=== PATIENT | female | born 1940 | race Caucasian/White ===

== ENCOUNTER 2020-02-12 15:39 | Inpatient (IN) | payer OTHER, SELFPAY ==
[~2020-02-12] VITALS: Ht 149.9 cm; Wt 57.2 kg
[~2020-02-12 15:39] MED LIST: ASPI-862 PO; HYDR-1189 PO; LIP40 PO; LOSA50TA3 PO
[2020-02-12 15:53] VITALS: BP_SYST 107
--- NOTE | 2020-02-12 15:58 | NUR ---
Patient to ER bed 3 to gown for evaluation. Side rails up. Report given to DANGELO Amado.
--- NOTE | 2020-02-12 16:00 | NUR ---
PT BIB DAUGHTER FOR ABD PAIN, N/V, DIARRHEA, DYSURIA AND GENERALIZED WEAKNESS X 5 DAYS. PT REPORTS HAVING SOME CONFUSION AND CHANGE IN TASTE. PRESENTS AAOX4, V/S STABLE.
--- NOTE | 2020-02-12 16:05 | NUR ---
ER DR. CANO AT THE BEDSIDE EVALUATING PT
--- NOTE | 2020-02-12 16:10 | NUR ---
# 20 gauge angiocath placed to RFA. Use of asceptic technique. Opsite placed over site. Blood return noted. Blood for lab drawn from site. Flushed with 10 cc of normal saline. No evidence of infiltration noted. Patient tolerated well.
[2020-02-12] MEDS ORDERED: NACL 0.9% 1,500 ML IV ONE (16:45)
[2020-02-12 17:12] LABS: BASOPHILS # (AUTO) 0.1 K/uL (0.0-0.2); BASOPHILS % (AUTO) 0.5 % (0.0-2.0); EOSINOPHILS # (AUTO) 0.7 K/uL (0.0-0.4); EOSINOPHILS % (AUTO) 6.4 % (0.0-4.0); HEMATOCRIT 34.5 % (36-48); HEMOGLOBIN 11.6 g/dL (12.0-16.0); LYMPHOCYTES # (AUTO) 0.1 K/uL (1.0-5.5); LYMPHOCYTES % (AUTO) 1.2 % (20.5-51.5); MEAN CORPUSCULAR HEMOGLOBIN 30 pg (27-31); MEAN CORPUSCULAR HGB CONC 34 % (32-36); MEAN CORPUSCULAR VOLUME 88 fL (79.0-98.0); MONOCYTES # (AUTO) 0.2 K/uL (0.0-1.0); MONOCYTES % (AUTO) 1.8 % (1.7-9.3); NEUTROPHILS # (AUTO) 10.2 K/uL (1.8-7.7); NEUTROPHILS % (AUTO) 90.1 % (40.0-70.0); PLATELET COUNT (AUTO) 61 K/uL (130-430); RED BLOOD CELL COUNT(AUTO) 3.92 MIL/uL (4.2-6.2); RED CELL DISTRIBUTION WIDTH 14.1 % (9.0-15.0); WHITE BLOOD COUNT (AUTO) 11.4 K/uL (4.8-10.8)
[2020-02-12 17:14] LABS: ANION GAP 15 (5-15); CALCIUM 9.2 mg/dL (8.4-11.0); CHLORIDE 95 mmol/L (98-107); CREATININE 2.14 mg/dL (0.55-1.30); GLUCOSE 148 mg/dL (70-99); POTASSIUM 3.9 mmol/L (3.5-5.1); SODIUM SERUM 128 mmol/L (136-145); UREA NITROGEN, BLOOD 88 mg/dL (8-21)
[2020-02-12 17:21] LABS: ALANINE AMINOTRANSFERASE 57 U/L (12-78); ALBUMIN 2.6 g/dL (3.4-4.8); ASPARTATE AMINOTRANSFERASE 42 U/L (10-37); TOTAL BILIRUBIN 1.1 mg/dL (0.0-1.0)
--- NOTE | 2020-02-12 18:00 | NUR ---
PT ABLE TO VOID AT [facility] COMMODE, SPECIMEN SENT TO LAB
[2020-02-12] MEDS ORDERED: D5/0.45 NS 1,000 ML IV SCH (18:45)
--- NOTE | 2020-02-12 19:00 | NUR ---
SW DAUGHTER IGLESIA TO INFORM ABOUT ADMISSION. SHE IS TO BRING PT'S MEDICATION INFORMATION FATOUMATA.
[2020-02-12] MEDS ORDERED: LIP40 PO (19:30)
[2020-02-12] MEDS ORDERED: NITR-85 PO (19:30)
[2020-02-12] MEDS ORDERED: LOSA50TA3 PO (19:30)
--- NOTE | 2020-02-12 19:30 | NUR ---
Medication reconciliation completed with information provided by IGLESIA (DAUGHTER). Any prior medication reconciliation on file was reviewed and corrected.
[2020-02-12 20:06] LABS: BILIRUBIN,URINE NEGATIVE (NEGATIVE); BLOOD, URINE 2+ (NEGATIVE); CLARITY/URINE TURBID (CLEAR); COLOR,URINE YELLOW (YELLOW); GLUCOSE,URINE NEGATIVE (NEGATIVE); KETONES,URINE NEGATIVE (NEGATIVE); LEUKOCYTE ESTERASE ,URINE 2+ (NEGATIVE); NITRITE, URINE NEGATIVE (NEGATIVE); PH,URINE 6.5 (5.0-8.0); PROTEIN URINE 2+ (NEGATIVE); UROBILINOGEN,URINE 0.2 (0.2-1.0)
[2020-02-12 20:30] LABS: BACTERIA,URINE MANY /HPF (None Seen); WBC,URINE >100 /HPF (0-3)
[2020-02-12 20:31] LABS: COARSE GRANULAR CASTS,URINE 0-10 /LPF (None Seen)
--- NOTE | 2020-02-12 20:55 | NUR ---
PT REPORT AND PT RECEIVED FROM DANGELO BOSE ALERT FOLLOWS COMMANDS C/O N/V/D
--- NOTE | 2020-02-12 23:02 | NUR ---
PT ASSISTED TO BR AMBULATORY
[2020-02-12] MEDS ORDERED: cefTRIAXone 1 GM IVPB PREMIX 50 ML IV SCH (23:45)
[2020-02-12] MEDS ORDERED: HYDROcodone/ACETAMIN 5-325 MG TAB (NORCO/ VICODIN) PO PRN (23:45)
[2020-02-12] MEDS ORDERED: HYDROcodone/ACETAMIN 10-325 MG TAB PO PRN (23:45)
[2020-02-12] MEDS ORDERED: NALOXONE HCL 0.4 MG/ML AMP (NARCAN) IVP PRN ×2 (23:45)
[2020-02-12] MEDS ORDERED: ONDANSETRON HCL 4 MG/2 ML VIAL IVP PRN (23:45)
--- NOTE | 2020-02-13 00:44 | NUR ---
PT SLEEPING NO DISTRESS
--- NOTE | 2020-02-13 04:30 | NUR ---
PT ASSISTED TO BR BY DANGELO NOBLE AND ALEJANDRO SUMNER
--- NOTE | 2020-02-13 06:00 | NUR ---
PT ALERT NO DISTRESS
[2020-02-13] MEDS: D5NS 1,000 ML IV SCH ×2 (07:15→21:27)
[2020-02-13 07:59] LABS: BASOPHILS % (AUTO) 0.2 % (0.0-2.0); EOSINOPHILS # (AUTO) 0.4 K/uL (0.0-0.4); EOSINOPHILS % (AUTO) 2.4 % (0.0-4.0); HEMATOCRIT 30.3 % (36-48); HEMOGLOBIN 10.2 g/dL (12.0-16.0); LYMPHOCYTES # (AUTO) 0.3 K/uL (1.0-5.5); LYMPHOCYTES % (AUTO) 2.1 % (20.5-51.5); MEAN CORPUSCULAR HEMOGLOBIN 29 pg (27-31); MEAN CORPUSCULAR HGB CONC 34 % (32-36); MEAN CORPUSCULAR VOLUME 87 fL (79.0-98.0); MONOCYTES # (AUTO) 1.3 K/uL (0.0-1.0); MONOCYTES % (AUTO) 8.1 % (1.7-9.3); NEUTROPHILS # (AUTO) 14.4 K/uL (1.8-7.7); NEUTROPHILS % (AUTO) 87.2 % (40.0-70.0); PLATELET COUNT (AUTO) 52 K/uL (130-430); RED BLOOD CELL COUNT(AUTO) 3.47 MIL/uL (4.2-6.2); RED CELL DISTRIBUTION WIDTH 14.1 % (9.0-15.0); WHITE BLOOD COUNT (AUTO) 16.5 K/uL (4.8-10.8)
--- NOTE | 2020-02-13 08:00 | NUR ---
Pt AOx4 no distress noted at this time
[2020-02-13 08:34] LABS: ALANINE AMINOTRANSFERASE 53 U/L (12-78); ALBUMIN 2.1 g/dL (3.4-4.8); ANION GAP 13 (5-15); ASPARTATE AMINOTRANSFERASE 38 U/L (10-37); CALCIUM 8.4 mg/dL (8.4-11.0); CHLORIDE 101 mmol/L (98-107); CREATININE 1.47 mg/dL (0.55-1.30); GLUCOSE 132 mg/dL (70-99); LIPASE 240 U/L (73-393); POTASSIUM 3.2 mmol/L (3.5-5.1); SODIUM SERUM 132 mmol/L (136-145); UREA NITROGEN, BLOOD 69 mg/dL (8-21)
[2020-02-13] MEDS ORDERED: LOSARTAN POTASSIUM 50 MG TABLET (COZAAR) PO SCH ×2 (09:00)
[2020-02-13] MEDS ORDERED: NITROFURANTOIN MONOHYD/M-CRYST 100 MG CAPSULE PO SCH (09:00)
[2020-02-13] MEDS: ATORVASTATIN 20 MG TABLET PO SCH ×2 (09:00→21:19)
[2020-02-13] MEDS: ASPIRIN 325 MG TABLET (ECOTRIN) PO SCH (09:00)
[2020-02-13] MEDS ORDERED: LEVOFLOXACIN 500 MG/D5W 100 ML IV SCH (10:00)
--- NOTE | 2020-02-13 10:00 | NUR ---
Pt resting comfortably in [facility] at this time.
[2020-02-13] MEDS ORDERED: LEVOFLOXACIN 500 MG/D5W 100 ML IV ONE (10:35)
[2020-02-13] MEDS ORDERED: ASPIRIN 325 MG TABLET (ECOTRIN) PO ONE (10:36)
--- NOTE | 2020-02-13 12:00 | NUR ---
Pt able to eat lunch, ambulate to restroom, VSS
[2020-02-13] MEDS: PIPERACILLIN/TAZO 3.375/DEX-IS 50 ML IV SCH ×2 (13:00→20:25)
[2020-02-13] MEDS ORDERED: PIPERACILLIN/TAZOBACTAM 3.375 GM/VIAL (ZOSYN) IV ONE (13:40)
--- NOTE | 2020-02-13 14:00 | NUR ---
Pt AO4, resting comfortably, VSS
--- NOTE | 2020-02-13 15:15 | NUR ---
Patient assisted ambulating to restroom, PT A&Ox4.
--- NOTE | 2020-02-13 19:10 | NUR ---
REPORT TO JUNE RN
--- NOTE | 2020-02-13 20:31 | NUR ---
Assist patient to restroom by EMT.
[2020-02-13] MEDS ORDERED: ACETAMINOPHEN 325 MG TABLET ONE (20:53)
[2020-02-13] MEDS: ACETAMINOPHEN 325 MG TABLET PO PRN (20:56)
--- NOTE | 2020-02-13 20:57 | NUR ---
Given Tylenol 650 mg PO , patient have headache, pain rate 4/10.
[2020-02-13] MEDS ORDERED: ATORVASTATIN 20 MG TABLET ONE (21:15)
--- NOTE | 2020-02-13 21:45 | NUR ---
Patient will be admitted to care of Dr. Glasgow. Admitted to M/S unit. Will go to room 122B. Belongings list completed. Complete and up to date summary report printed. SBAR report to be given at bedside with opportunity for questions.
--- NOTE | 2020-02-13 22:19 | NUR ---
ADMISSION: The patient, SHALONDA MONTOYA, 79 y/o, F admitted by SHERYL HERNANDEZ MD, was given written information regarding hospital policies, unit procedures and contact persons. Valuables were checked and pt oriented to her room and surrounding.
[2020-02-13 22:30] VITALS: BP_SYST 115
--- NOTE | 2020-02-13 22:30 | NUR ---
Pt ambulated to the bathroom with assist and back to bed after she voided clear yellowish urine in the toilet. Call light given to pt and bed alarm is on.
[2020-02-13 23:16] VITALS: BP_SYST 115
--- NOTE | 2020-02-14 | NUR ---
IVF is infusing well in RFA. Fall, droplet isolation an safety precautions are in place.
--- NOTE | 2020-02-14 01:05 | NUR ---
Pt is resting quietly in bed. IVF is infusing well in RFA. Call light is with pt and bed alarm is on.
[2020-02-14] MEDS: PIPERACILLIN/TAZO 3.375/DEX-IS 50 ML IV SCH ×3 (01:11→11:33)
--- NOTE | 2020-02-14 03:00 | NUR ---
IVF is infusing well in RFA. No respiratory distress noted. Call light is with pt and bed alarm is on.
[2020-02-14] MEDS: D5NS 1,000 ML IV SCH ×2 (03:15→14:26)
--- NOTE | 2020-02-14 05:00 | NUR ---
Pt had moderate amount of semi-watery brownish stool in BSC. Pt was assisted with hygiene. IVF is infusing well in RFA. Call light is with pt and bed alarm is on.
--- NOTE | 2020-02-14 06:10 | NUR ---
Pt had small amount of semi-watery brownish stool in bedpan. Pt was assisted with hygiene. IVF is infusing well in RFA. Call light is with pt and bed alarm is on.
[2020-02-14 07:38] LABS: BASOPHILS % (AUTO) 0.1 % (0.0-2.0); EOSINOPHILS % (AUTO) 0.1 % (0.0-4.0); HEMATOCRIT 31.9 % (36-48); HEMOGLOBIN 10.6 g/dL (12.0-16.0); LYMPHOCYTES # (AUTO) 0.5 K/uL (1.0-5.5); LYMPHOCYTES % (AUTO) 2.4 % (20.5-51.5); MEAN CORPUSCULAR HEMOGLOBIN 29 pg (27-31); MEAN CORPUSCULAR HGB CONC 33 % (32-36); MEAN CORPUSCULAR VOLUME 88 fL (79.0-98.0); MONOCYTES # (AUTO) 1.9 K/uL (0.0-1.0); MONOCYTES % (AUTO) 8.4 % (1.7-9.3); PLATELET COUNT (AUTO) 64 K/uL (130-430); RED BLOOD CELL COUNT(AUTO) 3.62 MIL/uL (4.2-6.2); RED CELL DISTRIBUTION WIDTH 14.3 % (9.0-15.0); WHITE BLOOD COUNT (AUTO) 22.5 K/uL (4.8-10.8)
[2020-02-14 07:57] LABS: ALANINE AMINOTRANSFERASE 51 U/L (12-78); ALBUMIN 1.8 g/dL (3.4-4.8); ANION GAP 12 (5-15); ASPARTATE AMINOTRANSFERASE 35 U/L (10-37); CALCIUM 8.3 mg/dL (8.4-11.0); CHLORIDE 103 mmol/L (98-107); GLUCOSE 160 mg/dL (70-99); SODIUM SERUM 136 mmol/L (136-145); UREA NITROGEN, BLOOD 38 mg/dL (8-21)
[2020-02-14 08:00] VITALS: BP_SYST 117
--- NOTE | 2020-02-14 08:40 | NUR ---
CONSULTATION CALLED REASON FOR CONSULTATION:ABDOMINAL PAIN WAS CONSULT CALLED?YY PERSON WHO WAS NOTIFIED:JACKSON CONSULTING PHYSICIAN:CALLIE VILLEDA (SIMONE MIXON HUMIDIFIER MAINTENANCE WORKER) MACHINE MAINTENANCE MECHANIC SPECIALTY:GI MACHINE MAINTENANCE MECHANIC PHONE NUMBER:[phone] REQUESTING PHYSICIAN:SOY JOHNSON
[2020-02-14] MEDS: ATORVASTATIN 20 MG TABLET PO SCH ×2 (09:56→20:19)
[2020-02-14] MEDS: FAMOTIDINE PF 20 MG/2 ML VIAL IVP SCH ×2 (09:56→20:17)
[2020-02-14] MEDS: ASPIRIN 325 MG TABLET (ECOTRIN) PO SCH (09:56)
[2020-02-14 10:00] LABS: INR 1.2 (0.8-1.2); PROTHROMBIN TIME 12.2 SECS (9.5-12.5)
[2020-02-14 10:29] LABS: TOTAL IRON BIND. CAPACITY 151 ug/dL (250-450)
[2020-02-14 10:44] LABS: ACETAMINOPHEN < 1 ug/mL (1-30)
[2020-02-14] MEDS ORDERED: POTASSIUM CHLORIDE 40 MEQ in NS 250 ML IV ONE (11:30)
[2020-02-14 11:38] VITALS: BP_SYST 112
[2020-02-14 12:13] LABS: BILIRUBIN,URINE NEGATIVE (NEGATIVE); BLOOD, URINE 2+ (NEGATIVE); COLOR,URINE YELLOW (YELLOW); GLUCOSE,URINE NEGATIVE (NEGATIVE); KETONES,URINE NEGATIVE (NEGATIVE); LEUKOCYTE ESTERASE ,URINE 2+ (NEGATIVE); NITRITE, URINE NEGATIVE (NEGATIVE); PROTEIN URINE 1+ (NEGATIVE); UROBILINOGEN,URINE 0.2 (0.2-1.0)
[2020-02-14 12:16] LABS: CLARITY/URINE HAZY (CLEAR)
[2020-02-14 12:21] LABS: BACTERIA,URINE FEW /HPF (None Seen); MUCUS,URINE 1+ /LPF (None Seen); WBC,URINE 20-50 /HPF (0-3)
--- NOTE | 2020-02-14 13:30 | NUR ---
PT TAKEN BY TECH TO HIDA SCAN.
--- NOTE | 2020-02-14 15:55 | NUR ---
PT STILL OUT OF UNIT FOR HIDA SCAN.
--- NOTE | 2020-02-14 16:23 | NUR ---
PT CAME BACK FRO HIDA SCAN , PT ASSISTED TO BS COMMODE AND THEN TO BED.
[2020-02-14 17:00] VITALS: BP_SYST 121
--- NOTE | 2020-02-14 17:13 | NUR ---
PT SIGNED CONSENT FOR CONVAL PLASMA, REQUISITION TAKEN TO LAB/ BBK Addendum: 02/14/20 at 1715 by Nahun Barrett RN WRONG ENTRY: PLS DISREGARD.
[2020-02-14] MEDS: GENTAMICIN 100 mg/50 mL NS 50 ML IV SCH (18:10)
--- NOTE | 2020-02-14 19:02 | NUR ---
CLOSING NOTES, PT ENDORSED TO NIGHT NURSE SAVANNA. PT ON STABLE CONDITION. ALL NEEDS MET AND ATTENDED TO.
--- NOTE | 2020-02-14 19:08 | NUR ---
Dietitian Recommendations * Recommend continuing NPO * Consider advance to clear liquid diet if/when medically appropriate LP, RD Please refer to Nutrition Assessment for details. Addendum: 02/14/20 at [address] Amended: Links added.
--- NOTE | 2020-02-14 20:00 | NUR ---
Initial Assessment: Patient lying in bed comfortably: no s/s of distress. With IV fluids and Potassium Regino infusing well to peripheral IV site on left forearm, IV site no s/s of infiltration. Patient in good spirit, but saying she doesn't have good appetite. Stated she feels nauseated when she tried to eat. Alert and oriented and able to relate needs. Respiration even and unlabored, on room air with 97% sat. Will continue to monitor.
[2020-02-14 20:41] VITALS: BP_SYST 129
[2020-02-14] MEDS: ACETAMINOPHEN 325 MG TABLET PO PRN (21:34)
--- NOTE | 2020-02-14 22:45 | NUR ---
Patient sleeping: Patient sleeping at this time . no indication of discomfort. no sign of distress.
[2020-02-15 00:24] VITALS: BP_SYST 109
--- NOTE | 2020-02-15 01:00 | NUR ---
Moved patient to room 106A: Patient awake at this time, informed her that she is going to moved to another room for possible needs of her current room and agreeable. No c/o discomfort at this time. Assist to bedside commode as needed and voiding well. All needs attended to.
--- NOTE | 2020-02-15 06:08 | NUR ---
Patient awake and resting: Patient resting at this time, awake and offered water as tolerated. Condition stable the whole night. No significant changes noted at this time. Will continue to monitor patients condition.
[2020-02-15] MEDS: D5NS 1,000 ML IV SCH ×2 (06:39→16:58)
[2020-02-15 08:00] VITALS: BP_SYST 128
[2020-02-15 08:22] LABS: BASOPHILS # (AUTO) 0.1 K/uL (0.0-0.2); BASOPHILS % (AUTO) 0.2 % (0.0-2.0); EOSINOPHILS % (AUTO) 0.2 % (0.0-4.0); HEMATOCRIT 28.2 % (36-48); HEMOGLOBIN 9.3 g/dL (12.0-16.0); LYMPHOCYTES # (AUTO) 0.7 K/uL (1.0-5.5); LYMPHOCYTES % (AUTO) 2.6 % (20.5-51.5); MEAN CORPUSCULAR HEMOGLOBIN 29 pg (27-31); MEAN CORPUSCULAR HGB CONC 33 % (32-36); MEAN CORPUSCULAR VOLUME 88 fL (79.0-98.0); MONOCYTES # (AUTO) 1.8 K/uL (0.0-1.0); MONOCYTES % (AUTO) 7.3 % (1.7-9.3); NEUTROPHILS # (AUTO) 22.4 K/uL (1.8-7.7); PLATELET COUNT (AUTO) 97 K/uL (130-430); RED BLOOD CELL COUNT(AUTO) 3.21 MIL/uL (4.2-6.2); RED CELL DISTRIBUTION WIDTH 14.6 % (9.0-15.0)
[2020-02-15 08:44] LABS: HEPATITIS A AB, IgM Negative (Negative); HEPATITIS B CORE AB, IgM Negative (Negative); HEPATITIS B SURFACE AG Negative (Negative)
--- NOTE | 2020-02-15 08:56 | NUR ---
CONSULTATION PAGED/CALLED Reason for Consultation: [] CHOLECYSTITIS Person Who was Notified: [] SAE Consulting Physician: [] Debbie ROBERTSON Cable Ferryboat Operator Specialty: [] GEN SURGEON Ordering Physician: [] Annamaria GROVE
[2020-02-15] MEDS ORDERED: ENALAPRILAT DIHYDRATE 1.25 MG/ML VIAL IVP PRN (09:00)
[2020-02-15 09:01] LABS: ALANINE AMINOTRANSFERASE 47 U/L (12-78); ALBUMIN 1.7 g/dL (3.4-4.8); ASPARTATE AMINOTRANSFERASE 40 U/L (10-37); BILIRUBIN,DIRECT 0.5 mg/dL (0.0-0.3); CHLORIDE 106 mmol/L (98-107); CREATININE 1.07 mg/dL (0.55-1.30); GLUCOSE 121 mg/dL (70-99); POTASSIUM 3.7 mmol/L (3.5-5.1); SODIUM SERUM 136 mmol/L (136-145); TOTAL BILIRUBIN 1.1 mg/dL (0.0-1.0); UREA NITROGEN, BLOOD 25 mg/dL (8-21)
[2020-02-15] MEDS: ASPIRIN 325 MG TABLET (ECOTRIN) PO SCH (09:02)
[2020-02-15] MEDS: ATORVASTATIN 20 MG TABLET PO SCH ×2 (09:02→21:00)
[2020-02-15] MEDS: FAMOTIDINE PF 20 MG/2 ML VIAL IVP SCH ×2 (09:02→21:00)
[2020-02-15 10:13] LABS: ANION GAP 9 (5-15)
[2020-02-15 12:00] VITALS: BP_SYST 142
--- NOTE | 2020-02-15 15:29 | NUR ---
GEN SURGEON DR MORALES, WAS CALLED RE: TO CLARIFY/CONFIRM THE KIND OF SURGERY TO BE DONE TONITE. SPOKE TO RAQUEL.
[2020-02-15 15:49] VITALS: BP_SYST 131
[2020-02-15] MEDS: GENTAMICIN 100 mg/50 mL NS 50 ML IV SCH (17:33)
--- NOTE | 2020-02-15 18:42 | NUR ---
alert, oriented, no complaint of pain, nor discomfort. " felt uncomfortable when starting eating even clear liquid diet, unable to hold food down seen by attending , HIDA scan done. Not seen by surgeon yet, despite all preps for possible surgery, done 1829- dr Garcia's PA called, the surgeon might not see the patient tonite, " surgery might happen in am, not tonite" both patient and her daughter made aware. Continues NPO with ivf running continously.
[2020-02-15 19:30] VITALS: BP_SYST 134
--- NOTE | 2020-02-15 22:30 | NUR ---
DR. MORALES ROUNDS DR. MORALES AT BEDSIDE SEEING PATIENT, HE VERBALIZED HE IS NOT YET SURE IF SURGERY WILL BE NECESSARY FOR THE PATIENT. HE HAS ASKED TO PLACE PATIENT ON NPO AT MIDNIGHT JUST IN CASE HE DECIDES TO DO SURGERY.
[2020-02-16] VITALS: BP_SYST 128
--- NOTE | 2020-02-16 | NUR ---
PATIENT NPO PATIENT IS PLACED ON NPO STATUS, NPO CONE PLACED ON BEDSIDE FOR REMINDER. ALL FOOD AND DRINKS HAVE BEEN CLEARED FROM PATIENT'S REACH. PATIENT VERBALIZES SHE UNDERSTANDS SHE IS NPO FOR POSSIBLE UPCOMING SURGERY.
[2020-02-16 05:08] LABS: CERULOPLASMIN 32.9 mg/dL (19.0-39.0)
[2020-02-16] MEDS: D5NS 1,000 ML IV SCH ×2 (05:09→20:29)
--- NOTE | 2020-02-16 06:40 | NUR ---
CLOSING NOTE PATIENT HAS BEEN NPO SINCE MIDNIGHT, NO NAUSEA OR VOMITTING NOTED THROUGHOUT THE SHIFT. PATIENT SLEPT WELL THROUGHOUT THE SHIFT, NO SHORTNESS OF BREATH NOTED. AT THIS TIME, PATIENT IS RESTING IN BED, STABLE, NO SIGNS OF RESPIRATORY DISTRESS. CALL LIGHT IS WITHIN REACH. BED IS LOCKED, ALARMED, AND AT THE LOWEST LEVEL. FALL, SAFETY, AND RESPIRATORY PRECAUTIONS HAVE BEEN TAKEN THROUGHOUT THE SHIFT. WILL CONTINUE TO MONITOR UNTIL SHIFT REPORT IS GIVEN AT BEDSIDE TO AM NURSE.
[2020-02-16 07:31] LABS: BASOPHILS % (AUTO) 0.1 % (0.0-2.0); EOSINOPHILS % (AUTO) 0.2 % (0.0-4.0); HEMATOCRIT 27.9 % (36-48); HEMOGLOBIN 9.3 g/dL (12.0-16.0); LYMPHOCYTES # (AUTO) 0.6 K/uL (1.0-5.5); LYMPHOCYTES % (AUTO) 2.7 % (20.5-51.5); MEAN CORPUSCULAR HEMOGLOBIN 29 pg (27-31); MEAN CORPUSCULAR HGB CONC 33 % (32-36); MEAN CORPUSCULAR VOLUME 88 fL (79.0-98.0); MONOCYTES # (AUTO) 1.2 K/uL (0.0-1.0); MONOCYTES % (AUTO) 5.5 % (1.7-9.3); NEUTROPHILS # (AUTO) 19.4 K/uL (1.8-7.7); NEUTROPHILS % (AUTO) 91.5 % (40.0-70.0); PLATELET COUNT (AUTO) 131 K/uL (130-430); RED BLOOD CELL COUNT(AUTO) 3.17 MIL/uL (4.2-6.2); RED CELL DISTRIBUTION WIDTH 14.8 % (9.0-15.0); WHITE BLOOD COUNT (AUTO) 21.2 K/uL (4.8-10.8)
[2020-02-16 07:52] LABS: NEUTROPHILS % (AUTO) 89.7 % (40.0-70.0)
[2020-02-16 08:00] VITALS: BP_SYST 155
--- NOTE | 2020-02-16 08:00 | NUR ---
Initial notes Awake, oriented. Dr. Decker at bedside talking to the patient. Will monitor.
[2020-02-16 08:06] LABS: ALANINE AMINOTRANSFERASE 45 U/L (12-78); ALBUMIN 1.6 g/dL (3.4-4.8); ANION GAP 10 (5-15); ASPARTATE AMINOTRANSFERASE 48 U/L (10-37); CHLORIDE 108 mmol/L (98-107); CREATININE 1.03 mg/dL (0.55-1.30); GLUCOSE 107 mg/dL (70-99); SODIUM SERUM 138 mmol/L (136-145); TOTAL BILIRUBIN 0.8 mg/dL (0.0-1.0); UREA NITROGEN, BLOOD 18 mg/dL (8-21)
[2020-02-16] MEDS ORDERED: *TPN PER PHARMACY XX PRN (09:00)
--- NOTE | 2020-02-16 09:43 | NUR ---
CONSULTATION CALLED REASON FOR CONSULTATION:HYDRONEPHROSIS WAS CONSULT CALLED?Y PERSON WHO WAS NOTIFIED:LEFT VOICEMAIL CONSULTING PHYSICIAN:RODO POP RUBBER COVERING MACHINE OPERATOR SPECIALTY:UROLOGY RUBBER COVERING MACHINE OPERATOR PHONE NUMBER:[phone] REQUESTING PHYSICIAN:SOY JOHNSON
--- NOTE | 2020-02-16 09:47 | NUR ---
CONSULTATION CALLED REASON FOR CONSULTATION:LIVER MASS WAS CONSULT CALLED?Y PERSON WHO WAS NOTIFIED:CAREY CONSULTING PHYSICIAN:HORTENCIA ADAME SH[facility] [employer] SALES REPRESENTATIVE SPECIALTY:GOAT FARMER PHONE NUMBER:[phone] REQUESTING PHYSICIAN:SOY JOHNSON
[2020-02-16] MEDS: ASPIRIN 325 MG TABLET (ECOTRIN) PO SCH (10:19)
[2020-02-16] MEDS: FAMOTIDINE PF 20 MG/2 ML VIAL IVP SCH ×2 (10:19→20:29)
[2020-02-16 11:34] LABS: GENTAMICIN,TROUGH 1.7 ug/mL (0.2-2.0)
[2020-02-16 11:35] LABS: PHOSPHORUS 3.5 mg/dL (2.7-4.5)
[2020-02-16 11:48] VITALS: BP_SYST 154
[2020-02-16] MEDS: PIPERACILLIN/TAZO 4.5GM/DEX-IS 100 ML IV SCH ×2 (14:00→22:54)
[2020-02-16 15:46] VITALS: BP_SYST 143
--- NOTE | 2020-02-16 16:08 | NUR ---
CONSULTATION CALLED REASON FOR CONSULTATION:2ND OPINION WAS CONSULT CALLED?Y PERSON WHO WAS NOTIFIED:SHIN CONSULTING PHYSICIAN:CECY TINSLEY EQUIPMENT INSTALLATION PROFESSIONAL SPECIALTY:VASCULAR SURGEON EQUIPMENT INSTALLATION PROFESSIONAL PHONE NUMBER:[phone] REQUESTING PHYSICIAN:SOY JOHNSON
--- NOTE | 2020-02-16 18:39 | NUR ---
Notes- Resting in bed, denies any pain at this time. IVF infusing well. No distress noted
--- NOTE | 2020-02-16 19:15 | NUR ---
OPENING NOTES Pt and endorsement received from day shift nurse. Pt is AAOx4, lying in bed. IVF is infusing well on left wrist G20. No complains of pain at this time. No signs of acute distress or SOB noted. Encouraged to use call light when needed. Safety precautions in place with 3 side rails up, bed alarm on and in lowest level. Call light with pt. Will continue to monitor.
--- NOTE | 2020-02-16 19:24 | NUR ---
Nutrition F/U (short note d/t high patient load) RD reviewed pt's current EMR including diet Hx, physician notes, nursing notes, pertinent labs/meds/procedures, care trends, and care activity. 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 Per EMR, plans for second opinion by vascular surgeon. Current Nutrition Support: PPN D20%, AA8.5% at 42 ml/hr via peripheral line Provides: 514 kcal/day, 43 gm protein/day, 1008 ml total volume/day, and GIR: 1.2 gm CHO/kg/min Meets: 34% of lower end of estimated caloric needs and 84% of lower end of estimated protein needs ESTIMATED NUTRITIONAL NEEDS NEW Estimated Energy Expenditure (kcals/day) 7196-3707 kcal/day (30-35 kcal/kg CBW for sepsis, ? CA) NEW Estimated Protein Required (g/day) 68-86 gm/day (1.2-1.5 gm/kg CBW for geriatric maintenance, sepsis, ? CA) NEW Estimated Fluid Required (l/day) 1.7-2 L/day (1 ml/kcal/day for maintenance) Problem/Etiology/Signs/Symptoms Inadequate nutritional intakes related to complicated GI function as evidenced by Hx of N/V/D, and need for GI workup and NPO status. *ongoing Expected Outcomes/Goals *MODIFIED* - Monitor advancement of diet, appetite, and PO intakes w/ goal of pt meeting at least 50% of estimated nutritional needs, labs trending WNL, normal GI function, and skin integrity/wt maintenance Dietitian Recommendations * Recommend PPN D20%, AA8.5% at 90 ml/hr via peripheral line Provides: 1224 kcal/day, 102 gm protein/day, 2400 ml total volume/day, and GIR: 3 gm CHO/kg/mine Meets: 72% of lower end of estimated protein needs and 119% of upper end of estimated protein needs Pt remains at high nutritional risk; RD to F/U within 2-3 days
[2020-02-16 20:26] VITALS: BP_SYST 134
[2020-02-16] MEDS: ATORVASTATIN 20 MG TABLET PO SCH (20:30)
[2020-02-16] MEDS: ACETAMINOPHEN 325 MG TABLET PO PRN (20:35)
--- NOTE | 2020-02-16 20:40 | NUR ---
ROUNDS All due meds given and pt tolerated well. IVF and TPN are infusing well. No signs of acute distress noted. Safety precautions in place and call light with pt. Will continue to monitor.
[2020-02-16] MEDS ORDERED: SODIUM ACETATE IV SCH ×8 (21:00)
[2020-02-16] MEDS ORDERED: [UNRECOGNIZED DRUG - OTHER] IV SCH ×8 (21:00)
[2020-02-16] MEDS ORDERED: TPN PERIPHERAL IV SCH ×8 (21:00)
[2020-02-16] MEDS ORDERED: POTASSIUM ACETATE IV SCH ×8 (21:00)
[2020-02-16 21:20] VITALS: BP_SYST 141
[2020-02-17 00:44] VITALS: BP_SYST 136
--- NOTE | 2020-02-17 01:37 | NUR ---
PAGED PAGED DOCTOR Kevin NORRIS WHO IS LINE PREP COOK FOR HCP
--- NOTE | 2020-02-17 02:03 | NUR ---
SPOKE TO Kevin RAHMAN Spoke to Dr. Odell regarding pt's complaint of abdominal pain of 08/07 and informed MD pt's is NPO. MD ordered Toradol 30mg IV every 6hours PRN for moderate pain 4-6 scale. Read back order and will carry out.
[2020-02-17] MEDS: KETOROLAC TROMETHAMINE 30 MG VIAL IVP PRN ×2 (02:26→12:17)
--- NOTE | 2020-02-17 04:44 | NUR ---
ROUNDS Pt is resting in bed with both eyes closed, with visible chest rise and fall with non-labored breathing noted. No signs of acute distress noted. IVF and TPN are infusing well. No needs at this time. Safety precautions in place and call light with pt. Will continue to monitor.
[2020-02-17] MEDS: D5NS 1,000 ML IV SCH ×2 (05:00→12:17)
[2020-02-17] MEDS: PIPERACILLIN/TAZO 4.5GM/DEX-IS 100 ML IV SCH ×3 (05:14→22:12)
--- NOTE | 2020-02-17 07:01 | NUR ---
CLOSING NOTES Pt is resting in bed with both eyes closed, with visible chest rise and fall with non-labored breathing noted. No complains of pain and no signs of acute distress or SOB noted. IVF and TPN are infusing well. All needs attended throughout the shift. Safety precautions maintained with 3 side rails up, bed alarm on and in lowest level. Call light with pt. Will endorse to day shift nurse.
[2020-02-17 07:42] LABS: BASOPHILS % (AUTO) 0.1 % (0.0-2.0); EOSINOPHILS # (AUTO) 0.1 K/uL (0.0-0.4); EOSINOPHILS % (AUTO) 0.5 % (0.0-4.0); HEMATOCRIT 25.2 % (36-48); HEMOGLOBIN 8.5 g/dL (12.0-16.0); LYMPHOCYTES # (AUTO) 0.7 K/uL (1.0-5.5); LYMPHOCYTES % (AUTO) 3.9 % (20.5-51.5); MEAN CORPUSCULAR HEMOGLOBIN 30 pg (27-31); MEAN CORPUSCULAR HGB CONC 34 % (32-36); MEAN CORPUSCULAR VOLUME 89 fL (79.0-98.0); MONOCYTES # (AUTO) 0.9 K/uL (0.0-1.0); MONOCYTES % (AUTO) 5.3 % (1.7-9.3); NEUTROPHILS # (AUTO) 15.5 K/uL (1.8-7.7); NEUTROPHILS % (AUTO) 90.2 % (40.0-70.0); PLATELET COUNT (AUTO) 148 K/uL (130-430); RED BLOOD CELL COUNT(AUTO) 2.85 MIL/uL (4.2-6.2); RED CELL DISTRIBUTION WIDTH 14.5 % (9.0-15.0); WHITE BLOOD COUNT (AUTO) 17.2 K/uL (4.8-10.8)
[2020-02-17 08:00] VITALS: BP_SYST 126
[2020-02-17] MEDS: ASPIRIN 325 MG TABLET (ECOTRIN) PO SCH ×2 (09:00→10:10)
[2020-02-17 09:20] LABS: ALANINE AMINOTRANSFERASE 44 U/L (12-78); ALBUMIN 1.3 g/dL (3.4-4.8); ANION GAP 12 (5-15); ASPARTATE AMINOTRANSFERASE 44 U/L (10-37); CALCIUM 7.6 mg/dL (8.4-11.0); CHLORIDE 107 mmol/L (98-107); CREATININE 1.02 mg/dL (0.55-1.30); GLUCOSE 155 mg/dL (70-99); PHOSPHORUS 2.9 mg/dL (2.7-4.5); POTASSIUM 3.3 mmol/L (3.5-5.1); SODIUM SERUM 137 mmol/L (136-145); TOTAL BILIRUBIN 0.9 mg/dL (0.0-1.0); UREA NITROGEN, BLOOD 18 mg/dL (8-21)
[2020-02-17] MEDS: FAMOTIDINE PF 20 MG/2 ML VIAL IVP SCH ×2 (10:10→22:04)
[2020-02-17 12:14] VITALS: BP_SYST 139
[2020-02-17 16:06] LABS: ANTI-SMOOTH MUSCLE AB 5 Units (0-19)
[2020-02-17 16:20] VITALS: BP_SYST 133
[2020-02-17] MEDS ORDERED: SODIUM ACETATE IV SCH ×8 (18:00)
[2020-02-17] MEDS ORDERED: TPN PERIPHERAL IV SCH ×8 (18:00)
[2020-02-17] MEDS ORDERED: POTASSIUM ACETATE IV SCH ×8 (18:00)
[2020-02-17] MEDS ORDERED: [UNRECOGNIZED DRUG - OTHER] IV SCH ×8 (18:00)
[2020-02-17 20:00] VITALS: BP_SYST 139
[2020-02-17] MEDS: ATORVASTATIN 20 MG TABLET PO SCH (22:03)
[2020-02-17] MEDS: LORazepam 2 MG/ML VIAL IVP PRN (22:04)
[2020-02-18] VITALS: BP_SYST 124
[2020-02-18] MEDS: PIPERACILLIN/TAZO 4.5GM/DEX-IS 100 ML IV SCH ×3 (06:48→22:56)
[2020-02-18 07:51] LABS: ALANINE AMINOTRANSFERASE 48 U/L (12-78); ALBUMIN 1.4 g/dL (3.4-4.8); ANION GAP 11 (5-15); ASPARTATE AMINOTRANSFERASE 41 U/L (10-37); CALCIUM 7.5 mg/dL (8.4-11.0); CHLORIDE 104 mmol/L (98-107); CREATININE 0.96 mg/dL (0.55-1.30); GLUCOSE 125 mg/dL (70-99); PHOSPHORUS 2.8 mg/dL (2.7-4.5); POTASSIUM 3.6 mmol/L (3.5-5.1); SODIUM SERUM 134 mmol/L (136-145); TOTAL BILIRUBIN 0.9 mg/dL (0.0-1.0); UREA NITROGEN, BLOOD 19 mg/dL (8-21)
[2020-02-18 08:00] VITALS: BP_SYST 157
--- NOTE | 2020-02-18 08:00 | NUR ---
Initial notes In bed, wants to sleep, denies any pain or discomfort, IVF and TPN infusing well. Enc to. call for help as needed. Call light within reach. will monitor.
--- NOTE | 2020-02-18 08:30 | NUR ---
Covid test- Trying to get test kit for PCR, per lab they already have a specimen sent to them.
--- NOTE | 2020-02-18 08:35 | NUR ---
notes- Per report, patient is PUI now because she was expose with a patient who is with the same room who came back positive.
[2020-02-18] MEDS: FAMOTIDINE PF 20 MG/2 ML VIAL IVP SCH ×2 (08:47→21:00)
[2020-02-18] MEDS: ASPIRIN 325 MG TABLET (ECOTRIN) PO SCH (08:47)
[2020-02-18] MEDS: D5NS 1,000 ML IV SCH ×2 (10:00→23:52)
--- NOTE | 2020-02-18 10:20 | NUR ---
Notes- spoke to Dr. Cj Md stated that he already spoke to patient and family regarding surgery.
--- NOTE | 2020-02-18 10:30 | NUR ---
PAGED PAGED AT [phone] SPOKE WITH HIS CUSTOMER SERVICE SALES ASSOCIATE.
[2020-02-18 12:06] LABS: LIVER-KIDNEY MICROSOMAL AB 0.9 Units (0.0-20.0)
--- NOTE | 2020-02-18 14:49 | NUR ---
Nutrition F/U (short note d/t high patient load) RD reviewed pt's current EMR including diet Hx, physician notes, nursing notes, pertinent labs/meds/procedures, care trends, and care activity. Per MD notes, pt is for stent placement and liver mass biopsy. Per Surgery, pt is not a good candidate for surgery, but agrees w/ biopsy. RD s/w Torrey Elizalde to increase infusion rate to meet estimated needs. Current Nutrition Support: NPO + PPN D20%, AA8.5% at 50 ml/hr via peripheral line Provides: 612 kcal/day, 51 gm protein/day, 1200 ml total volume/day, and GIR: 1.6 gm CHO/kg/min Meets: 36% of lower end of estimated caloric needs and 75% of lower end of estimated protein needs ESTIMATED NUTRITIONAL NEEDS Estimated Energy Expenditure (kcals/day) 6340-7272 Kcal/day (30-35 kcal/kg CBW for sepsis, ? Ca) Estimated Protein Required (g/day) 68-86 gm/day (1.2-1.5 gm/kg CBW for geriatric maintenance, sepsis, ? CA) Estimated Fluid Required (l/day) 1.7-2 L/day (1 ml/kcal/day for maintenance) Problem/Etiology/Signs/Symptoms Inadequate nutritional intakes related to complicated GI function as evidenced by Hx of N/V/D, and need for GI workup and NPO status. *ongoing Expected Outcomes/Goals *MODIFIED* - Monitor advancement of diet, appetite, and PO intakes w/ goal of pt meeting at least 50% of estimated nutritional needs, labs trending WNL, normal GI function, and skin integrity/wt maintenance Dietitian Recommendations * Recommend PPN D20%, AA8.5% at 90 ml/hr via peripheral line Provides: 1224 kcal/day, 102 gm protein/day, 2400 ml total volume/day, and GIR: 3 gm CHO/kg/mine Meets: 72% of lower end of estimated protein needs and 119% of upper end of estimated protein needs Pt remains at high nutritional risk; RD to F/U within 2-3 days
--- NOTE | 2020-02-18 14:59 | NUR ---
Dietitian Recommendations * Recommend PPN D20%, AA8.5% at 90 ml/hr via peripheral line Provides: 1224 kcal/day, 102 gm protein/day, 2400 ml total volume/day, and GIR: 3 gm CHO/kg/mine Meets: 72% of lower end of estimated protein needs and 119% of upper end of estimated protein needs Please see Nutrition F/U note for details. ALF, RD
[2020-02-18 16:00] VITALS: BP_SYST 155
--- NOTE | 2020-02-18 16:00 | NUR ---
Notes- Has incontinent of stool, cleaned patient. Denies any pain or shortness of breath. waiting for surgery.
--- NOTE | 2020-02-18 16:58 | NUR ---
Notes- Patient went to OR at this time.
[2020-02-18] MEDS ORDERED: ONDANSETRON HCL 4 MG/2 ML VIAL IVP PRN (18:30)
[2020-02-18] MEDS ORDERED: fentaNYL CITRATE/PF 100 MCG/2 ML AMP IVP PRN ×2 (18:30)
[2020-02-18 19:00] VITALS: BP_SYST 136
[2020-02-18] MEDS ORDERED: NS IRRIG SOLN 5000 ML IR ONE (19:00)
[2020-02-18] MEDS ORDERED: NS IRRIG SOLN 1000 ML IR ONE (19:00)
[2020-02-18] MEDS ORDERED: BUPIVACAINE /PF 0.75% 10 ML VIAL INJ ONE (19:00)
[2020-02-18 20:00] VITALS: BP_SYST 138
--- NOTE | 2020-02-18 20:00 | NUR ---
pt.returned to room post surgery.per .stent placement.v/s assessed per protocol.no c/o pain,nausea.pt.oriented. call light/telephone placed w/in access of the pt..
[2020-02-18] MEDS: ATORVASTATIN 20 MG TABLET PO SCH (21:00)
[2020-02-18] MEDS ORDERED: TPN PERIPHERAL IV SCH ×9 (21:00)
[2020-02-18] MEDS ORDERED: POTASSIUM ACETATE IV SCH ×9 (21:00)
[2020-02-18] MEDS ORDERED: SODIUM ACETATE IV SCH ×9 (21:00)
[2020-02-18] MEDS ORDERED: [UNRECOGNIZED DRUG - OTHER] IV SCH ×9 (21:00)
--- NOTE | 2020-02-18 21:00 | NUR ---
2100pmedications administered.i have administered tpn/iv fluids.po medication ingested by the pt.w/out difficulty.
--- NOTE | 2020-02-18 22:00 | NUR ---
pt.assessed.pt.requested assistance w the bedpan.pt.repositioned.no c/o pain,nausea.pt.presents ice water.v fluids/tpn infusing.
[2020-02-18] MEDS ORDERED: PIPERACILLIN/TAZOBACTAM 4.5 GM/VIAL (ZOSYN) IV ONE (23:13)
[2020-02-19] VITALS: BP_SYST 133
--- NOTE | 2020-02-19 | NUR ---
pt.assessed.v/s assessed values wnl.no c/o pain,nausea.i have assisted the pt.w the bedpan.pt.repositiond .tpn/iv fluids infusing. blood glucose assessed value;117mg/dl.call light/telephone placed w/in access of the pt.
--- NOTE | 2020-02-19 02:00 | NUR ---
pt.assessed.pt.presents quiescent affect;calm,somnolent. pt.assessed for cleanliness.pt.repositioned.tpn/iv fluids infusing. no c/o pain,nausea.call light/telephone placed w/in access of the pt.
--- NOTE | 2020-02-19 04:00 | NUR ---
pt.assessed.pt.requested change of the césar.i haved attended to the cleaning of the pt.pt.presents no requests@this hour. tpn/iv fluids infusing.general status stable.respiratory status stable.call light telephone w/in access of the pt.
[2020-02-19] MEDS: PIPERACILLIN/TAZO 4.5GM/DEX-IS 100 ML IV SCH ×3 (06:00→23:05)
--- NOTE | 2020-02-19 06:30 | NUR ---
PT.ASSESSED BLOOD GLUCOSE ASSESSED VALUE:123MG/DL.TPN/IV FLUIDS INFUSING.I HAVE RE-ESTABLISHED IV ACCESS lOCATION LT.HAND. NO C/O PAIN,NAUSEA.PT.REPOSITIONED.CALL LIGHT/TELEPHONE PLACED W/IN ACCESS OF THE PT.
[2020-02-19 08:04] LABS: BASOPHILS % (AUTO) 0.2 % (0.0-2.0); EOSINOPHILS # (AUTO) 0.1 K/uL (0.0-0.4); EOSINOPHILS % (AUTO) 0.4 % (0.0-4.0); HEMATOCRIT 26.5 % (36-48); HEMOGLOBIN 8.9 g/dL (12.0-16.0); LYMPHOCYTES # (AUTO) 0.7 K/uL (1.0-5.5); LYMPHOCYTES % (AUTO) 4.7 % (20.5-51.5); MEAN CORPUSCULAR HEMOGLOBIN 30 pg (27-31); MEAN CORPUSCULAR HGB CONC 34 % (32-36); MEAN CORPUSCULAR VOLUME 88 fL (79.0-98.0); MONOCYTES # (AUTO) 1.2 K/uL (0.0-1.0); MONOCYTES % (AUTO) 7.7 % (1.7-9.3); NEUTROPHILS # (AUTO) 13.1 K/uL (1.8-7.7); PLATELET COUNT (AUTO) 256 K/uL (130-430); RED CELL DISTRIBUTION WIDTH 14.5 % (9.0-15.0); WHITE BLOOD COUNT (AUTO) 15.1 K/uL (4.8-10.8)
--- NOTE | 2020-02-19 08:05 | NUR ---
Opening notes: Patient is awake, alert and oriented, not showing any signs of distress on RA. Patient is BR, does not try to get put of bed without any help. Tries using bed side commode with aid. Patient IV line is patent and running fluids and TPN at this time. Patient is on isolation due to PUI. Denies pain. I got a full report from am nurse, bed is low, locked, 2 side rails are up and call light is within reach.
[2020-02-19 09:01] LABS: ALANINE AMINOTRANSFERASE 48 U/L (12-78); ALBUMIN 1.4 g/dL (3.4-4.8); ANION GAP 13 (5-15); ASPARTATE AMINOTRANSFERASE 38 U/L (10-37); CALCIUM 7.4 mg/dL (8.4-11.0); CHLORIDE 100 mmol/L (98-107); CREATININE 0.81 mg/dL (0.55-1.30); GLUCOSE 114 mg/dL (70-99); PHOSPHORUS 2.7 mg/dL (2.7-4.5); POTASSIUM 3.4 mmol/L (3.5-5.1); SODIUM SERUM 133 mmol/L (136-145); TOTAL BILIRUBIN 1.1 mg/dL (0.0-1.0); UREA NITROGEN, BLOOD 15 mg/dL (8-21)
[2020-02-19] MEDS: FAMOTIDINE PF 20 MG/2 ML VIAL IVP SCH ×2 (09:02→21:26)
[2020-02-19 09:03] VITALS: BP_SYST 138
[2020-02-19] MEDS: ASPIRIN 325 MG TABLET (ECOTRIN) PO SCH (09:03)
--- NOTE | 2020-02-19 11:02 | NUR ---
COVID PCR test was collected and sent to lab. Pending as of now.
[2020-02-19 12:00] VITALS: BP_SYST 138
[2020-02-19] MEDS: KETOROLAC TROMETHAMINE 30 MG VIAL IVP PRN (13:32)
[2020-02-19] MEDS: D5NS 1,000 ML IV SCH (14:28)
[2020-02-19 16:00] VITALS: BP_SYST 140
--- NOTE | 2020-02-19 19:08 | NUR ---
Closing notes: Patient is awake, alert and oriented, not showing any signs of distress on RA. Patient is BR, does not try to get put of bed without any help. Tries using bed side commode with aid. Patient IV line is patent and running fluids and TPN at this time. Patient was negative on covid pcr, a second test was sent to lab, per CM a second rapid test will suffice to transfer patient, sent specimen to lab, will endorse to pm nurse. Patient denies pain, all needs were met during shift. Bed is low, locked, 2 side rails are up and call light is within reach.
[2020-02-19 20:00] VITALS: BP_SYST 143
[2020-02-19] MEDS ORDERED: [UNRECOGNIZED DRUG - OTHER] IV SCH ×10 (21:00)
[2020-02-19] MEDS ORDERED: SODIUM ACETATE IV SCH ×10 (21:00)
[2020-02-19] MEDS ORDERED: TPN PERIPHERAL IV SCH ×10 (21:00)
[2020-02-19] MEDS ORDERED: POTASSIUM ACETATE IV SCH ×10 (21:00)
[2020-02-19] MEDS: ATORVASTATIN 20 MG TABLET PO SCH (21:26)
[2020-02-19] MEDS ORDERED: PIPERACILLIN/TAZOBACTAM 4.5 GM/VIAL (ZOSYN) IV ONE (21:39)
--- NOTE | 2020-02-19 22:40 | NUR ---
IV start IV on left hand became infiltrated. New IV site, placed angiocath #22G on left wrist. Blood return noted, patient tolerated. Resumed fluids
[2020-02-20 01:00] VITALS: BP_SYST 135
[2020-02-20] MEDS: LORazepam 2 MG/ML VIAL IVP PRN (02:54)
[2020-02-20] MEDS: KETOROLAC TROMETHAMINE 30 MG VIAL IVP PRN (02:54)
--- NOTE | 2020-02-20 02:54 | NUR ---
Pain med, Ativan Patient reporting moderate abdominal pain; administered Toradol as ordered. She is also restless, she adds that she feels anxious and can't sleep; administered Ativan. Patient had bowel movement; dark soft formed. She was provided w/ pericare and clean pad/clean linen.
[2020-02-20] MEDS: D5NS 1,000 ML IV SCH ×2 (03:46→17:37)
[2020-02-20 08:00] VITALS: BP_SYST 137
--- NOTE | 2020-02-20 08:00 | NUR ---
spoke to naomi quiros regarding zosyn. awaiting for zosyn.
--- NOTE | 2020-02-20 09:56 | NUR ---
PER HCP/OPTUM CM PINKY CAMPUZANO , FAXED TO [facility], H/P, F/S, LABS WITH 2 COVID TESTS RESULTS.
[2020-02-20] MEDS: FAMOTIDINE PF 20 MG/2 ML VIAL IVP SCH ×2 (10:00→21:00)
[2020-02-20] MEDS: ASPIRIN 325 MG TABLET (ECOTRIN) PO SCH (10:00)
--- NOTE | 2020-02-20 10:00 | NUR ---
spoke to pharm, still awaiting zosyn. routine meds administered as ordered per md, education given, tolerated well. continue to monitor.
[2020-02-20 11:51] VITALS: BP_SYST 135
[2020-02-20 12:34] LABS: ALANINE AMINOTRANSFERASE 42 U/L (12-78); ALBUMIN 1.3 g/dL (3.4-4.8); ANION GAP 8 (5-15); ASPARTATE AMINOTRANSFERASE 29 U/L (10-37); CALCIUM 7.1 mg/dL (8.4-11.0); CHLORIDE 104 mmol/L (98-107); GLUCOSE 127 mg/dL (70-99); PHOSPHORUS 2.4 mg/dL (2.7-4.5); POTASSIUM 3.7 mmol/L (3.5-5.1); SODIUM SERUM 136 mmol/L (136-145); TOTAL BILIRUBIN 0.5 mg/dL (0.0-1.0); UREA NITROGEN, BLOOD 17 mg/dL (8-21)
--- NOTE | 2020-02-20 12:39 | NUR ---
accucheck done, iv abx administered as ordered per md, education given, tolerated well. continue to monitor.
[2020-02-20] MEDS: PIPERACILLIN/TAZO 4.5GM/DEX-IS 100 ML IV SCH ×2 (13:00→23:00)
[2020-02-20 13:06] LABS: TRIGLYCERIDES 73 mg/dL (30-150)
[2020-02-20 16:31] VITALS: BP_SYST 151
--- NOTE | 2020-02-20 17:37 | NUR ---
ACCUCHECK DONE, FABIO WEBB CLEANED PT, PT CLEAN AND DRY. NO ACUTE DISTRESS NOTED. ALL NEEDS MET. CALL LIGHT IN REACH. PT REQUESTED FOR TURKEY SANDWICH, GIVEN TURKEY SANDWICH. CONTINUE TO MONITOR.
--- NOTE | 2020-02-20 18:49 | NUR ---
CLOSING NOTES PT AWAKE AND ALERT, WATCHING TV IN BED. IV LINE INTACT AND PATENT, NO SIGNS OF INFILTRATION NOTED. NO ACUTE DISTRESS NOTED. ALL NEEDS MET. CALL LIGHT IN REACH. FALL, ASPIRATION, AND ISOLATION PRECAUTIONS IN PLACE. WILL ENDORSE TO NOC NURSE.
[2020-02-20 20:30] VITALS: BP_SYST 130
[2020-02-20] MEDS ORDERED: D5NS 1,000 ML IV SCH (21:00)
[2020-02-20] MEDS: ATORVASTATIN 20 MG TABLET PO SCH (21:00)
[2020-02-20] MEDS ORDERED: TPN PERIPHERAL IV SCH ×11 (21:00)
[2020-02-20] MEDS ORDERED: [UNRECOGNIZED DRUG - OTHER] IV SCH ×11 (21:00)
[2020-02-20] MEDS ORDERED: SODIUM ACETATE IV SCH ×11 (21:00)
[2020-02-20] MEDS ORDERED: POTASSIUM ACETATE IV SCH ×11 (21:00)
[2020-02-21 00:30] VITALS: BP_SYST 140
[2020-02-21 01:26] VITALS: BP_SYST 118
[2020-02-21] MEDS: PIPERACILLIN/TAZO 4.5GM/DEX-IS 100 ML IV SCH (05:53)
[2020-02-21 07:55] LABS: BASOPHILS # (AUTO) 0.1 K/uL (0.0-0.2); BASOPHILS % (AUTO) 1.1 % (0.0-2.0); EOSINOPHILS # (AUTO) 0.1 K/uL (0.0-0.4); EOSINOPHILS % (AUTO) 0.6 % (0.0-4.0); HEMATOCRIT 25.9 % (36-48); HEMOGLOBIN 8.7 g/dL (12.0-16.0); LYMPHOCYTES # (AUTO) 0.6 K/uL (1.0-5.5); LYMPHOCYTES % (AUTO) 5.1 % (20.5-51.5); MEAN CORPUSCULAR HEMOGLOBIN 30 pg (27-31); MEAN CORPUSCULAR HGB CONC 34 % (32-36); MEAN CORPUSCULAR VOLUME 88 fL (79.0-98.0); MONOCYTES # (AUTO) 1.4 K/uL (0.0-1.0); MONOCYTES % (AUTO) 10.9 % (1.7-9.3); NEUTROPHILS # (AUTO) 10.4 K/uL (1.8-7.7); NEUTROPHILS % (AUTO) 82.3 % (40.0-70.0); PLATELET COUNT (AUTO) 414 K/uL (130-430); RED BLOOD CELL COUNT(AUTO) 2.95 MIL/uL (4.2-6.2); WHITE BLOOD COUNT (AUTO) 12.7 K/uL (4.8-10.8)
[2020-02-21 08:30] LABS: ALANINE AMINOTRANSFERASE 43 U/L (12-78); ALBUMIN 1.5 g/dL (3.4-4.8); ANION GAP 6 (5-15); ASPARTATE AMINOTRANSFERASE 29 U/L (10-37); CALCIUM 7.3 mg/dL (8.4-11.0); CHLORIDE 101 mmol/L (98-107); CREATININE 0.74 mg/dL (0.55-1.30); GLUCOSE 130 mg/dL (70-99); PHOSPHORUS 2.4 mg/dL (2.7-4.5); POTASSIUM 4.1 mmol/L (3.5-5.1); SODIUM SERUM 133 mmol/L (136-145); TOTAL BILIRUBIN 0.6 mg/dL (0.0-1.0); UREA NITROGEN, BLOOD 16 mg/dL (8-21)
[2020-02-21 08:57] LABS: TRIGLYCERIDES 76 mg/dL (30-150)
[2020-02-21] MEDS: ASPIRIN 325 MG TABLET (ECOTRIN) PO SCH (09:00)
--- NOTE | 2020-02-21 11:00 | NUR ---
Opening Notes Patient was transferred to ROOM 105A via bed. Pt is awake, alert and oriented x4. No resp distress noted at this time. Pt remains on room air, saturating at 96%. Breathing is even and unlabored. Pt denies any pain at this time. IV site on right wrist, 22 gauge intact at this time. Some swelling noted at the site. Pt is refusing another IV access d/t possible discharge today. D5 1/2 NS @ 40 cc/hr, infusing well and PPN @ 90 cc/hr, infusing well. Pt is incontinent, cleaned and left dry, repositioned in bed. BSC and bedpan also available as well. All needs met. Safety and fall precautions in place. Bed in lowest position, alarm on, locked. Will continue to monitor.
--- NOTE | 2020-02-21 11:30 | NUR ---
Refused Blood Sugar Check
[2020-02-21 12:00] VITALS: BP_SYST 144
--- NOTE | 2020-02-21 12:00 | NUR ---
Patient is being seen and examined by PHYSICAL THERAPY
[2020-02-21] MEDS: FAMOTIDINE PF 20 MG/2 ML VIAL IVP SCH (12:01)
[2020-02-21 13:05] VITALS: BP_SYST 144
--- NOTE | 2020-02-21 14:25 | NUR ---
Notes/Pericare Patient is incontinent, cleaned patient, left dry and repositioned x3 times. Pt is noted with diarrhea. Patient denies any dysuria. Noted with redness on buttocks. All needs met. No pain. Will continue to monitor.
[2020-02-21] MEDS ORDERED: [UNRECOGNIZED DRUG - OTHER] IV SCH ×10 (21:00)
[2020-02-21] MEDS ORDERED: SODIUM ACETATE IV SCH ×10 (21:00)
[2020-02-21] MEDS ORDERED: TPN PERIPHERAL IV SCH ×10 (21:00)
[2020-02-21] MEDS ORDERED: POTASSIUM ACETATE IV SCH ×10 (21:00)
== END 2020-02-21 17:00 | disposition home or self-care (01) | DRG 853 ==
LOC: SED 15:39 → SMU 18:34
PROVIDERS: ADMIT Internal Medicine Hospice and Palliative Medicine; ATTEND Internal Medicine
PROC: BT1F1ZZ Fluoroscopy of Left Kidney, Ureter and Bladder using Low Osmolar Contrast (ICD-10-PCS; 2020-02-18)
PROC: 0T778DZ Dilation of Left Ureter with Intraluminal Device, Via Natural or Artificial Opening Endoscopic (ICD-10-PCS; principal; 2020-02-18 16:30)
DX: A41.51 Sepsis due to Escherichia coli [E. coli] (principal); N17.0 Acute kidney failure with tubular necrosis; N13.6 Pyonephrosis; K82.0 Obstruction of gallbladder; R18.8 Other ascites; E87.1 Hypo-osmolality and hyponatremia; K81.0 Acute cholecystitis; D50.9 Iron deficiency anemia, unspecified; A08.4 Viral intestinal infection, unspecified; E78.5 Hyperlipidemia, unspecified; Z20.828 Contact with and (suspected) exposure to other viral communicable diseases; Z96.649 Presence of unspecified artificial hip joint; R16.0 Hepatomegaly, not elsewhere classified; I10 Essential (primary) hypertension; K76.9 Liver disease, unspecified; Z80.0 Family history of malignant neoplasm of digestive organs; Z90.710 Acquired absence of both cervix and uterus
CPT/HCPCS: 36415; 71045; 74170-TC; 76000; 76376; 76700-TC; 78226; 80053; 80074; 80076; 80170-TC; 81000-TC; 82103; 82105; 82248-TC; 82378; 82390; 82728; 82962; 83516; 83540-TC; 83550-TC; 83605; 83690-TC; 83735-TC; 84100-TC; 84478-TC; 85025; 85610-TC; 86301; 86376; 87040-TC; 87086; 93005; 96360; 97110-GP; 97112-GP; 97116-GP; 97530-GP; 99291; A9537; C1758; C1769; C2625; G0480; G0481; J0610; J0696; J1580; J1885; J1956; J2060; J2405; J2543; J3475; J3480; J3490; J7042; J7050; J7060; J7131; Q9967; U0003

== ENCOUNTER 2020-05-16 14:31 | Day surgery (SDC) | payer OTHER, SELFPAY ==
[~2020-05-16] VITALS: Ht 149.9 cm; Wt 46.3 kg
[~2020-05-16 14:31] MED LIST changes: -ASPI-862 PO; -HYDR-1189 PO; +HYDR-3919 PO; +NITR-85 PO
[2020-05-16] MEDS ORDERED: NS IRRIG SOLN 1000 ML IR ONE (17:00)
[2020-05-16] MEDS ORDERED: BUPIVACAINE /PF 0.75% 10 ML VIAL INJ ONE (17:00)
[2020-05-16] MEDS ORDERED: cefTRIAXone 1 GM IVPB PREMIX 50 ML IV ONE (17:00)
[2020-05-16] MEDS ORDERED: ISOVUE-300 (IOPAMIDOL) 100 ML INFUS..BTL IV ONE (17:00)
[2020-05-16] MEDS ORDERED: fentaNYL CITRATE/PF 100 MCG/2 ML AMP IVP PRN ×2 (17:45)
[2020-05-16] MEDS ORDERED: ONDANSETRON HCL 4 MG/2 ML VIAL IVP PRN (17:45)
[2020-05-16 18:57] VITALS: BP_SYST 153
[2020-05-16 20:37] VITALS: BP_SYST 154
== END 2020-05-16 21:30 | disposition home or self-care (01) ==
LOC: SDS 14:31 → SMU 14:34 → SDS 21:30
PROVIDERS: ATTEND Urology
DX: N13.30 Unspecified hydronephrosis (principal)
CPT/HCPCS: 36415; 52332; 87426; C1758; C1769; C2625; J0696; J3490; J7120; Q9967 ×2; 76000